=== PATIENT | female | born 1990 | race African-American/Black ===

== ENCOUNTER 2020-03-05 19:16 | Observation (INO) ==
[2020-03-05] MEDS ORDERED: SODIUM CHLORIDE 0.9% 1,000 ML IV STA (19:48)
[2020-03-05] MEDS ORDERED: hydrALAZINE 20 MG/1 ML VIAL IV STA (19:48)
[2020-03-05 19:56] LABS: Basophils % 0.2 % (0.0-0.8); Eosinophils % 0.8 % (0.00-10.9); Hematocrit 36.7 VOL% (35.7-47.0); Hemoglobin 11.3 GM/DL (12.0-16.0); Immature Granulocytes % 0.2 %; Immature Granulocytes Absolute 0.01 #; Lymphocytes # 1.9 10*3/uL (1.4-4.0); Lymphocytes % 38.3 % (21.3-54.2); Mean Corpuscular HGB Conc 30.8 GM/DL (32-36); Mean Corpuscular Volume 70.6 FL (87-102); Mean Platelet Volume 10.2 FL (9.6-12.0); Monocytes % 6.6 % (1.7-12.7); Neutrophils % 53.9 % (38.7-73.9); Platelet Count 278 T/CUMM (130-400); Red Cell Distribution Width 17.2 % (9.3-17.3)
[2020-03-05 20:06] LABS: PT Patient Result 10.6 SECS (9.8-11.9)
[2020-03-05 20:18] LABS: Alanine Aminotransferase 88 U/L (13-56); Albumin 3.4 G/DL (3.4-5.0); Alkaline Phosphatase 86 U/L (45-117); Aspartate Amino Transferase 83 U/L (0-37); Bilirubin,Total < 0.39 MG/DL (0.2-1.0); Blood Urea Nitrogen 14 MG/DL (7-18); Calcium 8.9 MG/DL (8.5-10.1); Estimated Glom Filtration Rate 153 ML/MIN; Ferritin 130.6 ng/ml (8-252); Glucose 97 MG/DL (74-106); Osmolality,Calculated 277.5 MOS/KG (273-304); Total Protein 8.2 G/DL (6.4-8.3)
[2020-03-05] MEDS ORDERED: DEXTROSE 50% 25 GM/50 ML VIAL IV PRN (20:58)
[2020-03-05] MEDS ORDERED: AZITHROMYCIN 250 MG TABLET PO STA (20:58)
[2020-03-05] MEDS ORDERED: ONDANSETRON 4 MG/2 ML VIAL IV PRN (20:58)
[2020-03-05] MEDS ORDERED: guaiFENesin/DM ER 600-30 MG TABLET PO PRN (20:58)
[2020-03-05] MEDS ORDERED: GLUCAGON 1 MG VIAL IM PRN (20:58)
[2020-03-05] MEDS ORDERED: hydrALAZINE 20 MG/1 ML VIAL IV PRN (20:58)
[2020-03-05] MEDS ORDERED: ACETAMINOPHEN 325 MG TABLET PO PRN (20:58)
[2020-03-05] MEDS ORDERED: diphenhydrAMINE CAP 25 MG CAPSULE PO PRN (20:58)
[2020-03-05] MEDS ORDERED: NICOTINE 21 MG/24 HR PATCH TRANSDERM PRN (20:58)
[2020-03-05] MEDS ORDERED: cefTRIAXone 1,000 MG in SYRINGE 1 EACH IV SCH (21:30)
[2020-03-05] MEDS: DEXAMETHASONE 4 MG/1 ML VIAL IV SCH (21:40)
[2020-03-06] MEDS ORDERED: CHOLECALCIFEROL 1,000 UNIT TABLET PO SCH (09:00)
[2020-03-06] MEDS ORDERED: ZINC GLUCONATE 50 MG TABLET PO SCH (09:00)
[2020-03-06] MEDS ORDERED: AZITHROMYCIN 250 MG TABLET PO SCH (09:00)
[2020-03-06] MEDS ORDERED: ASCORBIC ACID 500 MG TABLET PO SCH (09:00)
[2020-03-06] MEDS: DEXAMETHASONE 4 MG/1 ML VIAL IV SCH (10:10)
[2020-03-06 10:37] LABS: Basophils % 0.3 % (0.0-0.8); Hematocrit 35.4 VOL% (35.7-47.0); Hemoglobin 10.9 GM/DL (12.0-16.0); Immature Granulocytes % 0.3 %; Immature Granulocytes Absolute 0.01 #; Lymphocytes # 1.2 10*3/uL (1.4-4.0); Lymphocytes % 33.3 % (21.3-54.2); Mean Corpuscular HGB Conc 30.8 GM/DL (32-36); Mean Corpuscular Volume 70.5 FL (87-102); Mean Platelet Volume 10.5 FL (9.6-12.0); Monocytes % 5.5 % (1.7-12.7); Neutrophils % 60.6 % (38.7-73.9); Platelet Count 300 T/CUMM (130-400); Red Blood Count 5.02 MC/CUMM (3.8-5.5); Red Cell Distribution Width 17.2 % (9.3-17.3); White Blood Count 3.6 T/CUMM (4-12)
[2020-03-06 10:49] LABS: Calcium 8.9 MG/DL (8.5-10.1); Osmolality,Calculated 282.1 MOS/KG (273-304)
[2020-03-06 10:55] LABS: Lymphocytes 27 % (20-55); Platelet Estimate Adequate; Segmented Neutrophils 67 % (50-85); Total Cells Counted 100
[2020-03-06 10:56] LABS: Hypochromasia 1+; Microcytosis 1+; Ovalocytes Slight
[2020-03-06 11:25] VITALS: BP 127/93
[2020-03-06] MEDS ORDERED: BENZONATATE 100 MG CAPSULE PO SCH (15:00)
== END 2020-03-06 14:59 | disposition home or self-care (01) ==
LOC: EDUNIT# → EDBD → N.2E 19:16 → N.ED 19:16 → N.2E 21:50
PROVIDERS: ADMIT Internal Medicine; ATTEND Internal Medicine